=== PATIENT | male | born 2000 | race Hispanic/Latino ===

== ENCOUNTER 2022-04-12 18:53 | Emergency (ER) | payer SELFPAY | END 2022-04-12 20:32 | disposition home or self-care (01) | LOC: ERS 18:53 | DX: H10.13 Acute atopic conjunctivitis, bilateral (principal) | CPT/HCPCS: 99282 ==

== ENCOUNTER 2022-06-07 09:11 | Emergency (ER) | payer SELFPAY | END 2022-06-07 12:05 | disposition home or self-care (01) | LOC: ERS 09:11 | DX: J06.9 Acute upper respiratory infection, unspecified (principal); Z20.822 Contact with and (suspected) exposure to COVID-19; Z87.891 Personal history of nicotine dependence | CPT/HCPCS: 71045; 87804; 93005; U0003; U0005 ==